=== PATIENT | female | born 1990 | race Caucasian/White ===

== ENCOUNTER 2023-11-10 10:52 | Observation (INO) | payer SELFPAY ==
[2023-11-10] VITALS (17 sets, daily range): BP systolic 71–154; BP diastolic 44–87; PULSE 75–122; RESP 16–24; TEMP 36.5–36.8; O2SAT 96–100; BMI 42.9; BMI 43.8
--- NOTE | 2023-11-10 10:53 | ECG_ITS ---
APPROVED REPORT Exam: Resting ECG HR:126 bpm ECG Measurements Heart Rate 126 AXES MN 130 P 66 QRSd 85 QRS 79 QT 395 T 55 QTc 470 Conclusion SINUS TACHYCARDIA LOW QRS VOLTAGE IN PRECORDIAL LEADS [QRS DEFLECTION < 1.0 mV IN CHEST LEADS] NONSPECIFIC T-WAVE ABNORMALITY ABNORMAL RHYTHM ECG UNCONFIRMED REPORT Electronically signed by : Janusz Stevenson MD 11/10/2023 20:05:59
--- NOTE | 2023-11-10 11:01 | PC.NURSE ---
DR KUMAR AT BEDSIDE
--- NOTE | 2023-11-10 11:02 | XR_ITS ---
FINAL REPORT CLINICAL HISTORY: cp soa tachycardia FINDINGS: SINGLE-VIEW CHEST The heart size is normal. The mediastinum is normal. The lungs are clear. There is no pneumothorax. IMPRESSION: No acute cardiopulmonary process. Reviewed, Interpreted and Dictated by Fred Boyd MD Transcribed by Estella Baez Authenticated and [facility]
[2023-11-10] MEDS: ASPIRIN 81MG CHEWABLE TABLET 324 MG PO (11:07)
[2023-11-10] MEDS: 0.9 % SODIUM CHLORIDE 1000ML 1,000 ML 999 ML IV (11:08)
--- NOTE | 2023-11-10 11:11 | PC.NURSE ---
XR AT BEDSIDE
[2023-11-10] MEDS: BELLADONNA ALKALOIDS 60 ML ML PO (11:14)
[2023-11-10 11:23] LABS: Basophils % 0.2 % (0.1-2.0); Chloride 106 mmol/L (98-107); Eosinophils # 0.3 K/mm3 (0.0-0.4); Eosinophils % 1.7 % (0.1-12.0); Hematocrit 44.5 % (37.0-47.0); Hemoglobin 14.4 g/dL (12.2-16.2); Lymphocytes # 0.8 K/mm3 (0.7-4.5); Lymphocytes % 5.3 % (10-50); Mean Corpuscular HGB Conc 32.3 g/dL (31.8-35.4); Mean Corpuscular Hemoglobin 23.3 pg (27.0-31.2); Mean Corpuscular Volume 72.1 fl (81-99); Mean Platelet Volume 8.9 fl (7.4-10.4); Monocytes # 0.6 K/mm3 (0.1-1.0); Monocytes % 4.1 % (1.7-9.3); Neutrophils # 13.1 K/mm3 (1.8-7.8); Neutrophils % 88.7 % (37.0-80.0); Platelet Count 407 K/mm3 (142-424); Red Blood Count 6.18 M/mm3 (4.20-5.40); Sodium 138 mmol/L (136-145); White Blood Count 14.8 K/mm3 (4.8-10.8)
--- NOTE | 2023-11-10 11:23 | PC.NURSE ---
PT REPORTS EXTREME IMPROVEMENT IN PAIN AFTER GI COCKTAIL
--- NOTE | 2023-11-10 11:24 | [facility].EDCP ---
Discharge Plan Disposition Patient Disposition: Admitted Referrals Follow up/Referrals: Provider,MD Baron [Primary Care Provider] - See instructions Clinical Impressions Clinical Impression: Nausea vomiting and diarrhea, Chest pain, Dehydration, Tachycardia Discharge ED Provider: Gary Jordan [facility] <Gary Jordan MD - Last Filed: 11/10/23 15:17> General Chief Complaint: Chest Pain Stated Complaint: CHEST PAIN Time Seen by Provider: 11/10/23 10:55 Mode of Arrival: Ambulatory Source of Information: Patient Limitations: No Limitations Description of Symptoms (Recalled from ER Triage Doc. by RN): ABD PAIN WHICH TURNED TO CHEST PAIN. History of Present Illness HPI narrative: This is a 33-year-old female with history of prediabetes and hypertension presenting with chest pain. Patient states that chest pain started acutely while she was at work just prior to this visit. 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 Has never had abdominal pain or chest pain like this. She states she had abdominal pain is epigastric and radiated toward her back. Shortly thereafter, it radiated up into her chest. She is now having chest pain that is all over, is deep in her chest and does not radiate. No nausea or vomiting, shortness of breath, diaphoresis, syncope, neurologic deficits, bowel or bladder dysfunction, or any other concerns. Denies any DVT or PE risk factors. Use vaporizer daily. Related Data Allergies Allergy/AdvReac Type Severity Reaction Status Date / Time banana Allergy Verified 11/10/23 11:05 [facility] <Gary Jordan MD - Last Filed: 11/10/23 15:17> [facility] Disclaimer: The information contained in this section may have been updated after the patient was seen, as this information can be updated by other users. Social History (Updated 11/10/23 @ 15:17 by Gary Jordan MD) Smoking Status: Current every day smoker alcohol intake: never current occupational status: employed Travel in the last 8 weeks: None <Gary Jordan MD - Last Filed: 11/10/23 15:17> ROS Obtained: Yes All systems reviewed & no additional complaints except as documented Physical Exam <Gary Jordan MD - Last Filed: 11/10/23 15:17> General General appearance: alert and other (Anxious) Eye Eye exam: Present normal appearance, PERRL and EOMI Neck Neck exam: Present trachea midline Chest Chest inspection: Present normal inspection and symmetric chest wall rise Respiratory Respiratory exam: Present normal lung sounds bilaterally and wheezes (Left upper lobe isolated); Absent respiratory distress, stridor, accessory muscle use or prolonged expiratory phase Cardiovascular Cardiovascular exam: Present normal rhythm and tachycardia Abdominal Exam Abdominal exam: Present soft; Absent distention, tenderness or guarding Extremities Exam Extremities exam: Absent edema Neurological Exam Neurological exam: Present alert, oriented X3 and CN II-XII intact Skin Skin exam: Present warm and dry; Absent cyanosis, diaphoresis or pallor HEART Score <aGry Jordan MD - Last Filed: 11/10/23 15:17> HEART Score HEART Score assessment performed?: Yes History (anamnesis): Moderately suspicious ECG: Non-specific disturbance Age: <45 years Risk factors: 1-2 risk factors Troponin: </= normal limit HEART Score: 3 <Karolina Curtis MD - Last Filed: 11/10/23 16:09> HEART Score HEART Score: 3 Procedures <aGry Jordan MD - Last Filed: 11/10/23 15:17> Limited Ultrasound Indication:: Limited cardiac ultrasound Indication: Chest pain Identified cardiac views: -Cardiac parasternal long axis -Cardiac parasternal short axis -Cardiac apical four-chamber Findings: -Cardiac activity present -Gross wall motion normal -Pericardial effusion absent -Right heart strain absent Impression: -Normal cardiac ultrasound Images were saved to permanent archive The study was technically adequate CPT: 91181 This study was performed by me, and I personally interpreted all images/videos. Based on my clinical judgement, these images were adequate and did necessitate further imaging. Critical Care <Gary Jordan MD - Last Filed: 11/10/23 15:17> Critical Care Time Critical Care Time: No <Karolina Curtis MD - Last Filed: 11/10/23 16:09> Critical Care Time Critical Care Time: Yes Attestation: On 11/10/23, the high probability of a clinically significant, sudden or life threatening deterioration of the following system(s) required my full and direct attention, intervention and personal management. The time I documented below is in addition to time spent performing reported procedures but includes the following listed in this critical care notation. Total Time Total Critical Care Time: 35 Medical Decision Making <Gary Jordan MD - Last Filed: 11/10/23 15:17> Medical Records Medical records reviewed: Yes I reviewed the patient's medical records. Marco Inquiry Pt receiving controlled substance: No Marco was queried for this patient: No Vital Signs Vital Signs: 11/10/23 10:53 11/10/23 10:55 11/10/23 11:01 Temperature 97.7 F Temperature Source Oral Pulse Rate 120 H 119 H Pulse Rate [Right Radial] 120 H Respiratory Rate 22 24 Blood Pressure 154/66 H Blood Pressure [Right Arm] 127/87 Blood Pressure Mean 95 Blood Pressure Mean [Right Arm] 100 02 Sat by Pulse Oximetry 100 100 Oxygen Delivery Method Room Air 11/10/23 12:05 11/10/23 12:16 11/10/23 12:30 Temperature Temperature Source Pulse Rate 122 H 99 H 99 H Pulse Rate [Right Radial] Respiratory Rate 18 20 18 Blood Pressure 71/54 L 113/70 133/67 Blood Pressure [Right Arm] Blood Pressure Mean 59 84 89 Blood Pressure Mean [Right Arm] 02 Sat by Pulse Oximetry 99 100 100 Oxygen Delivery Method 11/10/23 13:00 11/10/23 13:31 11/10/23 14:00 Temperature Temperature Source Pulse Rate 102 H 100 H 118 H Pulse Rate [Right Radial] Respiratory Rate 16 24 18 Blood Pressure 147/77 H 114/72 124/71 Blood Pressure [Right Arm] Blood Pressure Mean 85 82 88 Blood Pressure Mean [Right Arm] 02 Sat by Pulse Oximetry 99 99 100 Oxygen Delivery Method 11/10/23 14:30 11/10/23 15:00 11/10/23 15:31 Temperature Temperature Source Pulse Rate 98 H 102 H 105 H Pulse Rate [Right Radial] Respiratory Rate 20 20 18 Blood Pressure 116/71 120/74 106/64 L Blood Pressure [Right Arm] Blood Pressure Mean 88 87 78 Blood Pressure Mean [Right Arm] 02 Sat by Pulse Oximetry 100 100 97 Oxygen Delivery Method Lab Data Labs: Lab Results 11/10/23 10:57: WBC 14.8 H, RBC 6.18 H, Hgb 14.4, Hct 44.5, MCV 72.1 L, MCH 23.3 L, MCHC 32.3, RDW 17.0, Plt Count 407, MPV 8.9, Neut % (Auto) 88.7 H, Lymph % (Auto) 5.3 L, [place] % (Auto) 4.1, Eos % (Auto) 1.7, Baso % (Auto) 0.2, Neut # (Auto) 13.1 H, Lymph # (Auto) 0.8, [place] # (Auto) 0.6, Eos # (Auto) 0.3, Baso # (Auto) 0.0, Total Counted 100, Neutrophils % (Manual) 90 H, Lymphocytes % (Manual) 7 L, Monocytes % (Manual) 3, Platelet Estimate Normal, Hypochromasia 1+, D-Dimer 0.83 H, Sodium 138, Potassium 5.0, Chloride 106, Carbon Dioxide 23, Anion Gap 14.0, BUN 14, Creatinine 0.90, Estimated Creat Clear 78, Estimated GFR 73, Est GFR ( Amer) 88, Glucose 101 H, Hemoglobin A1c 5.2, Lactate 2.6 H, Calcium 9.6, Total Bilirubin 0.9, AST 49 H, ALT 47, Alkaline Phosphatase 138 H, Troponin I < 0.01, NT-Pro-B Natriuret Pep < 20.0, Total Protein 9.3 H, Albumin 4.9, Globulin 4.4 H, Albumin/Globulin Ratio 1.1, Triglycerides 133, Cholesterol 212 H, LDL Cholesterol Direct 98.13 L, VLDL Cholesterol 27, HDL Cholesterol 49, Cholesterol/HDL Ratio 4.3 H, Lipase 43, TSH 1.22, Thyroxine (T4) 9.5, HCG, Quant < 2 11/10/23 14:17: Troponin I < 0.01 11/10/23 15:12: SARS-CoV-2 (PCR) Not detected, Influenza A Untype (PCR) Not detected, Influenza Type B (PCR) Not detected 11/10/23 15:20: Lactate 2.3 H 11/10/23 10:57 11/10/23 10:57 Response Orders (Tests/Meds): ED MEDICATIONS Generic Name Dose Route Start Last Admin Trade Name Freq PRN Reason Stop Dose Admin Acetaminophen 650 mg 11/10/23 16:05 Acetaminophen 325mg Tab PO 12/10/23 16:04 Q4HP PRN Fever or Mild Pain (1-3) Enoxaparin Sodium 40 mg 11/11/23 09:00 Enoxaparin 40mg/0.4ml Syringe SQ 12/11/23 08:59 DAILY CLEM Lactated Ringer's 1,000 mls @ 999 mls/hr 11/10/23 15:08 11/10/23 15:19 Lactated Ringer's 1000 Ml Bag IV 11/10/23 16:08 999 mls/hr .Q1H1M ONE Administration Sodium Chloride 10 ml 11/10/23 11:57 11/10/23 12:58 Sodium Chloride 0.9% 10ml Syr (Rad Only) IV 12/10/23 11:56 10 ml NEEDED PRN Administration Maintain IV Site Discontinued Medications Generic Name Dose Route Start Last Admin Trade Name Freq PRN Reason Stop Dose Admin Aspirin 324 mg 11/10/23 11:01 11/10/23 11:07 Aspirin 81mg Chewable Tablet PO 11/10/23 11:02 324 mg ONCE ONE Administration Belladonna Alkaloids 60 ml 11/10/23 11:12 11/10/23 11:14 Belladonna Alkaloids 60 Ml Ml PO 11/10/23 11:13 60 ml ONCE ONE Administration Sodium Chloride 1,000 mls @ 999 mls/hr 11/10/23 11:01 11/10/23 11:08 Sod Chlor 0.9% 1000ml Bag IV 11/10/23 12:01 999 mls/hr .Q1H1M ONE Administration Iopamidol 95 ml 11/10/23 11:57 11/10/23 12:01 Iopamidol-370 (76%);100ml Bottle IV 11/10/23 11:58 Not Given ONCE ONE Iopamidol 100 ml 11/10/23 12:57 11/10/23 12:58 Iopamidol-370 (76%);100ml Bottle IV 11/10/23 12:58 100 ml ONCE ONE Administration Ketorolac Tromethamine 15 mg 11/10/23 14:37 11/10/23 14:41 Ketorolac 30mg/Ml Vial IV 11/10/23 14:38 15 mg ONCE ONE Administration Sodium Chloride 40 ml 11/10/23 11:57 11/10/23 12:01 0.9 % Sodium Chloride 50 Ml Vial IV 11/10/23 11:58 Not Given ONCE ONE Sodium Chloride 50 ml 11/10/23 12:57 11/10/23 12:58 0.9 % Sodium Chloride 50 Ml Vial IV 11/10/23 12:58 50 ml ONCE ONE Administration Sodium Chloride 10 ml 11/10/23 12:57 11/10/23 12:58 Sodium Chloride 0.9% 10ml Syr (Rad Only) IV 11/10/23 12:58 10 ml ONCE ONE Administration ORDERS Category Date Time Status CT angio abdomen pelvis Stat Cat Scan 11/10/23 11:[address] angio chest PE protocol Stat Cat Scan 11/10/23 11:49 Completed POCUS Point of Care (ER Only) Stat Exams 11/10/23 11:01 Taken XR chest portable Stat Exams 11/10/23 11:02 Taken Brain Natriuretic Peptide Stat Lab 11/10/23 10:57 Completed Complete Blood Count Auto Diff AMLAB Lab 11/11/23 06:00 Ordered Complete Blood Count Auto Diff Stat Lab 11/10/23 10:57 Completed Comprehensive Metabolic Panel AMLAB Lab 11/11/23 06:00 Ordered Comprehensive Metabolic Panel Stat Lab 11/10/23 10:57 Completed D-Dimer Stat Lab 11/10/23 10:57 Completed HCG,Quantitative Stat Lab 11/10/23 10:57 Completed Hemoglobin A1C Stat Lab 11/10/23 10:57 Completed Lactic Acid Follow Up (RFLX 1) Stat Lab 11/10/23 15:20 Completed Lactic Acid Stat Lab 11/10/23 10:57 Completed Lipase Stat Lab 11/10/23 10:57 Completed Lipid Panel Stat Lab 11/10/23 10:57 Completed Magnesium AMLAB Lab 11/11/23 06:00 Ordered Rapid PCR Covid and Flu A/B Stat Lab 11/10/23 15:12 Completed T4 (Thyroxine) Stat Lab 11/10/23 10:57 Completed TSH [Thyroid Stimulating Hormone] Stat Lab 11/10/23 10:57 Completed Troponin I Q3H Lab 11/10/23 14:17 Completed Troponin I Q3H Lab 11/10/23 17:15 Ordered Troponin I Stat Lab 11/10/23 10:57 Completed Blood Culture Stat Micro 11/10/23 15:20 Ordered ECG initial Besson Routine Y 11/10/23 10:53 Completed ECG repeat same Besson Routine Y 11/10/23 11:41 Completed MDM Narrative Medical Decision Narrative: This is a 33-year-old female with history of prediabetes and hypertension presenting with chest pain. Patient states that chest pain started acutely while she was at work just prior to this visit. 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 Has never had abdominal pain or chest pain like this. She states she had abdominal pain is epigastric and radiated toward her back. Shortly thereafter, it radiated up into her chest. She is now having chest pain that is all over, is deep in her chest and does not radiate. No nausea or vomiting, shortness of breath, diaphoresis, syncope, neurologic deficits, bowel or bladder dysfunction, or any other concerns. Denies any DVT or PE risk factors. Use vaporizer daily. History was obtained via conversation with patient. On arrival, patient hemodynamically stable, alert, oriented x4, appropriate, GCS 15, moving all extremities spontaneously, pupils equal and reactive to light. Full physical exam performed and significant for anxious appearing woman in no acute distress. She is tachycardic 120 to 130 bpm. Saturating appropriately on room air, breathing about 25-30 times a minute. Cardiac exam within normal limits other than regular tachycardia. Lungs with great air movement bilaterally, isolated wheezes left upper chest anteriorly. No lower extremity edema. Abdomen is soft, nontender, nondistended. Differential includes pneumothorax, PE, dissection, anxiety, pneumonia, metabolic, endocrinologic, esophageal spasm, among others. Patient was given GI cocktail, aspirin for symptomatic management and correction of underlying abnormalities. Patient states that she felt immediate relief on reevaluation, but is still tachycardic. Workup independently interpreted and significant for nonactionable chemistry. Patient has mild leukocytosis. Lactate 2.6. Blood cultures drawn. Chest x-ray without concern for cardiopulmonary airspace disease. CT of the chest abdomen pelvis without acute dissection or PE. Concern for pneumonia on radiology read, but I disagree and patient is not clinically pneumonia patient. See radiology read for full review of final results. Independent interpretation of EKG shows sinus tachycardia 126 beats a minute with normal axis. SC, QRS, QT intervals within normal limits. Nonspecific and nondiagnostic T wave changes. Patient placed on continuous cardiac monitoring and continuous pulse ox with initial blood pressure 117/73, heart rate 120, saturation 97. Repeat EKG performed after GI cocktail and symptom management. Sinus tachycardia 110 bpm with incomplete right bundle branch block morphology. Nonspecific T wave inversion V2 V3 and lead III without reciprocal change. Nondiagnostic overall. PERC positive. Heart score 3. On reevaluation, patient still feeling pretty poorly. She was given Toradol. This seemed to help with pain, but patient still feels worn out. COVID and flu swab pending. Conversation was had with hospitalist as well as patient. If flu swab positive, patient to be sent home with Tamiflu, if negative, patient be admitted for further workup. Patient and hospitalist agreeable with this plan. Prior to swab, care handed off to oncoming physician. <Karolina Curtis MD - Last Filed: 11/10/23 16:09> Vital Signs Vital Signs: 11/10/23 10:53 11/10/23 10:55 11/10/23 11:01 Temperature 97.7 F Temperature Source Oral Pulse Rate 120 H 119 H Pulse Rate [Right Radial] 120 H Respiratory Rate 22 24 Blood Pressure 154/66 H Blood Pressure [Right Arm] 127/87 Blood Pressure Mean 95 Blood Pressure Mean [Right Arm] 100 02 Sat by Pulse Oximetry 100 100 Oxygen Delivery Method Room Air 11/10/23 12:05 11/10/23 12:16 11/10/23 12:30 Temperature Temperature Source Pulse Rate 122 H 99 H 99 H Pulse Rate [Right Radial] Respiratory Rate 18 20 18 Blood Pressure 71/54 L 113/70 133/67 Blood Pressure [Right Arm] Blood Pressure Mean 59 84 89 Blood Pressure Mean [Right Arm] 02 Sat by Pulse Oximetry 99 100 100 Oxygen Delivery Method 11/10/23 13:00 11/10/23 13:31 11/10/23 14:00 Temperature Temperature Source Pulse Rate 102 H 100 H 118 H Pulse Rate [Right Radial] Respiratory Rate 16 24 18 Blood Pressure 147/77 H 114/72 124/71 Blood Pressure [Right Arm] Blood Pressure Mean 85 82 88 Blood Pressure Mean [Right Arm] 02 Sat by Pulse Oximetry 99 99 100 Oxygen Delivery Method 11/10/23 14:30 11/10/23 15:00 11/10/23 15:31 Temperature Temperature Source Pulse Rate 98 H 102 H 105 H Pulse Rate [Right Radial] Respiratory Rate 20 20 18 Blood Pressure 116/71 120/74 106/64 L Blood Pressure [Right Arm] Blood Pressure Mean 88 87 78 Blood Pressure Mean [Right Arm] 02 Sat by Pulse Oximetry 100 100 97 Oxygen Delivery Method Lab Data Lab results reviewed: Yes I reviewed the patient's lab results. Labs: Lab Results 11/10/23 10:57: WBC 14.8 H, RBC 6.18 H, Hgb 14.4, Hct 44.5, MCV 72.1 L, MCH 23.3 L, MCHC 32.3, RDW 17.0, Plt Count 407, MPV 8.9, Neut % (Auto) 88.7 H, Lymph % (Auto) 5.3 L, [place] % (Auto) 4.1, Eos % (Auto) 1.7, Baso % (Auto) 0.2, Neut # (Auto) 13.1 H, Lymph # (Auto) 0.8, [place] # (Auto) 0.6, Eos # (Auto) 0.3, Baso # (Auto) 0.0, Total Counted 100, Neutrophils % (Manual) 90 H, Lymphocytes % (Manual) 7 L, Monocytes % (Manual) 3, Platelet Estimate Normal, Hypochromasia 1+, D-Dimer 0.83 H, Sodium 138, Potassium 5.0, Chloride 106, Carbon Dioxide 23, Anion Gap 14.0, BUN 14, Creatinine 0.90, Estimated Creat Clear 78, Estimated GFR 73, Est GFR ( Amer) 88, Glucose 101 H, Hemoglobin A1c 5.2, Lactate 2.6 H, Calcium 9.6, Total Bilirubin 0.9, AST 49 H, ALT 47, Alkaline Phosphatase 138 H, Troponin I < 0.01, NT-Pro-B Natriuret Pep < 20.0, Total Protein 9.3 H, Albumin 4.9, Globulin 4.4 H, Albumin/Globulin Ratio 1.1, Triglycerides 133, Cholesterol 212 H, LDL Cholesterol Direct 98.13 L, VLDL Cholesterol 27, HDL Cholesterol 49, Cholesterol/HDL Ratio 4.3 H, Lipase 43, TSH 1.22, Thyroxine (T4) 9.5, HCG, Quant < 2 11/10/23 14:17: Troponin I < 0.01 11/10/23 15:12: SARS-CoV-2 (PCR) Not detected, Influenza A Untype (PCR) Not detected, Influenza Type B (PCR) Not detected 11/10/23 15:20: Lactate 2.3 H Response Orders (Tests/Meds): ED MEDICATIONS Generic Name Dose Route Start Last Admin Trade Name Price PRN Reason Stop Dose Admin Acetaminophen 650 mg 11/10/23 16:05 Acetaminophen 325mg Tab PO 12/10/23 16:04 Q4HP PRN Fever or Mild Pain (1-3) Enoxaparin Sodium 40 mg 11/11/23 09:00 Enoxaparin 40mg/0.4ml Syringe SQ 12/11/23 08:59 DAILY CLEM Lactated Ringer's 1,000 mls @ 999 mls/hr 11/10/23 15:08 11/10/23 15:19 Lactated Ringer's 1000 Ml Bag IV 11/10/23 16:08 999 mls/hr .Q1H1M ONE Administration Sodium Chloride 10 ml 11/10/23 11:57 11/10/23 12:58 Sodium Chloride 0.9% 10ml Syr (Rad Only) IV 12/10/23 11:56 10 ml NEEDED PRN Administration Maintain IV Site Discontinued Medications Generic Name Dose Route Start Last Admin Trade Name Price PRN Reason Stop Dose Admin Aspirin 324 mg 11/10/23 11:01 11/10/23 11:07 Aspirin 81mg Chewable Tablet PO 11/10/23 11:02 324 mg ONCE ONE Administration Belladonna Alkaloids 60 ml 11/10/23 11:12 11/10/23 11:14 Belladonna Alkaloids 60 Ml Ml PO 11/10/23 11:13 60 ml ONCE ONE Administration Sodium Chloride 1,000 mls @ 999 mls/hr 11/10/23 11:01 11/10/23 11:08 Sod Chlor 0.9% 1000ml Bag IV 11/10/23 12:01 999 mls/hr .Q1H1M ONE Administration Iopamidol 95 ml 11/10/23 11:57 11/10/23 12:01 Iopamidol-370 (76%);100ml Bottle IV 11/10/23 11:58 Not Given ONCE ONE Iopamidol 100 ml 11/10/23 12:57 11/10/23 12:58 Iopamidol-370 (76%);100ml Bottle IV 11/10/23 12:58 100 ml ONCE ONE Administration Ketorolac Tromethamine 15 mg 11/10/23 14:37 11/10/23 14:41 Ketorolac 30mg/Ml Vial IV 11/10/23 14:38 15 mg ONCE ONE Administration Sodium Chloride 40 ml 11/10/23 11:57 11/10/23 12:01 0.9 % Sodium Chloride 50 Ml Vial IV 11/10/23 11:58 Not Given ONCE ONE Sodium Chloride 50 ml 11/10/23 12:57 11/10/23 12:58 0.9 % Sodium Chloride 50 Ml Vial IV 11/10/23 12:58 50 ml ONCE ONE Administration Sodium Chloride 10 ml 11/10/23 12:57 11/10/23 12:58 Sodium Chloride 0.9% 10ml Syr (Rad Only) IV 11/10/23 12:58 10 ml ONCE ONE Administration ORDERS Category Date Time Status CT angio abdomen pelvis Stat Cat Scan 11/10/23 11:[address] angio chest PE protocol Stat Cat Scan 11/10/23 11:49 Completed POCUS Point of Care (ER Only) Stat Exams 11/10/23 11:01 Taken XR chest portable Stat Exams 11/10/23 11:02 Taken Brain Natriuretic Peptide Stat Lab 11/10/23 10:57 Completed Complete Blood Count Auto Diff AMLAB Lab 11/11/23 06:00 Ordered Complete Blood Count Auto Diff Stat Lab 11/10/23 10:57 Completed Comprehensive Metabolic Panel AMLAB Lab 11/11/23 06:00 Ordered Comprehensive Metabolic Panel Stat Lab 11/10/23 10:57 Completed D-Dimer Stat Lab 11/10/23 10:57 Completed HCG,Quantitative Stat Lab 11/10/23 10:57 Completed Hemoglobin A1C Stat Lab 11/10/23 10:57 Completed Lactic Acid Follow Up (RFLX 1) Stat Lab 11/10/23 15:20 Completed Lactic Acid Stat Lab 11/10/23 10:57 Completed Lipase Stat Lab 11/10/23 10:57 Completed Lipid Panel Stat Lab 11/10/23 10:57 Completed Magnesium AMLAB Lab 11/11/23 06:00 Ordered Rapid PCR Covid and Flu A/B Stat Lab 11/10/23 15:12 Completed T4 (Thyroxine) Stat Lab 11/10/23 10:57 Completed TSH [Thyroid Stimulating Hormone] Stat Lab 11/10/23 10:57 Completed Troponin I Q3H Lab 11/10/23 14:17 Completed Troponin I Q3H Lab 11/10/23 17:15 Ordered Troponin I Stat Lab 11/10/23 10:57 Completed Blood Culture Stat Micro 11/10/23 15:20 Ordered ECG initial Besson Routine Y 11/10/23 10:53 Completed ECG repeat same Besson Routine Y 11/10/23 11:41 Completed MDM Narrative Medical Decision Narrative: This is a 33-year-old female with history of prediabetes and hypertension presenting with chest pain. Patient states that chest pain started acutely while she was at work just prior to this visit. 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 Has never had abdominal pain or chest pain like this. She states she had abdominal pain is epigastric and radiated toward her back. Shortly thereafter, it radiated up into her chest. She is now having chest pain that is all over, is deep in her chest and does not radiate. No nausea or vomiting, shortness of breath, diaphoresis, syncope, neurologic deficits, bowel or bladder dysfunction, or any other concerns. Denies any DVT or PE risk factors. Use vaporizer daily. History was obtained via conversation with patient. On arrival, patient hemodynamically stable, alert, oriented x4, appropriate, GCS 15, moving all extremities spontaneously, pupils equal and reactive to light. Full physical exam performed and significant for anxious appearing woman in no acute distress. She is tachycardic 120 to 130 bpm. Saturating appropriately on room air, breathing about 25-30 times a minute. Cardiac exam within normal limits other than regular tachycardia. Lungs with great air movement bilaterally, isolated wheezes left upper chest anteriorly. No lower extremity edema. Abdomen is soft, nontender, nondistended. Differential includes pneumothorax, PE, dissection, anxiety, pneumonia, metabolic, endocrinologic, esophageal spasm, among others. Patient was given GI cocktail, aspirin for symptomatic management and correction of underlying abnormalities. Patient states that she felt immediate relief on reevaluation, but is still tachycardic. Workup independently interpreted and significant for nonactionable chemistry. Patient has mild leukocytosis. Lactate 2.6. Blood cultures drawn. Chest x-ray without concern for cardiopulmonary airspace disease. CT of the chest abdomen pelvis without acute dissection or PE. Concern for pneumonia on radiology read, but I disagree and patient is not clinically pneumonia patient. See radiology read for full review of final results. Independent interpretation of EKG shows sinus tachycardia 126 beats a minute with normal axis. SC, QRS, QT intervals within normal limits. Nonspecific and nondiagnostic T wave changes. Patient placed on continuous cardiac monitoring and continuous pulse ox with initial blood pressure 117/73, heart rate 120, saturation 97. Repeat EKG performed after GI cocktail and symptom management. Sinus tachycardia 110 bpm with incomplete right bundle branch block morphology. Nonspecific T wave inversion V2 V3 and lead III without reciprocal change. Nondiagnostic overall. PERC positive. Heart score 3. On reevaluation, patient still feeling pretty poorly. She was given Toradol. This seemed to help with pain, but patient still feels worn out. COVID and flu swab pending. Conversation was had with hospitalist as well as patient. If flu swab positive, patient to be sent home with Tamiflu, if negative, patient be admitted for further workup. Patient and hospitalist agreeable with this plan. Prior to swab, care handed off to oncoming physician. Assessment this is Dr. Curtis at 4 PM I took over for Dr. Jordan. I personally reviewed the images with Dr. Jordan as well as the labs that have returned and flu and COVID are negative at this point. I agree that there is no evidence of pneumonia on CT imaging of the chest also reviewed with the patient she had no respiratory symptoms preceding this will not treat her clinically for pneumonia. She did have SIRS which was nonspecific in this particular case. No definitive source of infection right now antibiotics have been withheld. She has had significant amount of fluids at this point her heart rate is down into the 80s she looks well on my exam other than still peers very fatigued. At this point emergent medical condition seem to have been ruled out labs otherwise unremarkable CT imaging did not yield any other alternative diagnosis from emergency standpoint. I gave her the option of going home but she still felt very poor Dr. Jordan had already discussed the case with Dr. Laurent who had agreed to admit the patient for further evaluation and treatment of the patient desired and the patient and patient's family still would like to stay for possible observation. I discussed with Dr. Laurent who graciously accepted the patient for further evaluation and treatment.
[2023-11-10 11:25] LABS: Alanine Aminotransferase 47 U/L (12-78); Alkaline Phosphatase 138 U/L (38-126); Aspartate Amino Transferase 49 U/L (14-36); Bilirubin,Total 0.9 mg/dl (0.2-1.3); Blood Urea Nitrogen 14 mg/dl (7-17); Carbon Dioxide 23 mmol/L (22.0-30.0); Creatinine Clearance Estimated 78 mL/min (50-200); Estimated Glomerular Filt Rate 73 ml/min (>60); GFR (African American) 88 ML/MIN (>60); Lipase 43 U/L (23-300)
[2023-11-10 11:26] LABS: Albumin Level 4.9 g/dl (3.5-5.0); Albumin/Globulin Ratio 1.1 (1.1-1.8); Calcium 9.6 mg/dl (8.4-10.2); Chol/HDL Ratio 4.3 (1-3.5); Cholesterol 212 mg/dl (140-200); Globulin 4.4 g/dL (1.3-3.2); Glucose 101 mg/dl (74-100); HDL Cholesterol 49 mg/dl (40-60); Total Protein,Serum 9.3 g/dl (6.3-8.2); Triglycerides 133 mg/dl (30-150); VLDL Cholesterol 27 mg/dL (0-40)
--- NOTE | 2023-11-10 11:26 | CT_ITS ---
FINAL REPORT TECHNIQUE: Pre-and postcontrast images of the abdomen and pelvis were performed by computed tomography. Extensive 3-D reconstruction images were performed. A CTA was performed. This study was performed with techniques to keep radiation doses as low as reasonably achievable (ALARA). Individualized dose reduction techniques using automated exposure control or adjustment of mA and/or kV according to the patient''s size were employed. CLINICAL HISTORY: cp and abd pain to back, crescendo FINDINGS: ABDOMEN/PELVIS: The lung bases are clear. Precontrast images demonstrate no evidence of nephrolithiasis. No adrenal masses are identified. There is mild diffuse fatty infiltration of the liver. The gallbladder is present. There are calcified granulomas in the spleen. The spleen and pancreas are unremarkable. Uterus is present and lies eccentric to the left. The appendix is normal. CTA: The abdominal aorta is proper caliber. The SMA, celiac axis, and MOOSE are patent. There is no significant stenosis or calcification. There are widely patent renal arteries with early bifurcation of the right renal artery. The iliac arteries are unremarkable. IMPRESSION: No evidence of renal vascular hypertension or significant renal artery stenosis. Reviewed, Interpreted and Dictated by Fred Boyd MD Transcribed by Estella Baez Authenticated and [facility]
[2023-11-10 11:27] LABS: Lactic Acid 2.6 mmol/L (0.7-2.1)
[2023-11-10 11:28] LABS: MANUAL DIFFERENTIAL MANUAL DIFFERENTIAL (MANUAL DIFF)
[2023-11-10 11:30] LABS: D-Dimer 0.83 ug/mL (0.0-0.5)
--- NOTE | 2023-11-10 11:41 | ECG_ITS ---
APPROVED REPORT Exam: Resting ECG HR:110 bpm ECG Measurements Heart Rate 110 AXES CO 148 P 56 QRSd 90 QRS 69 QT 318 T 31 QTc 383 Conclusion SINUS TACHYCARDIA LOW QRS VOLTAGE IN PRECORDIAL LEADS [QRS DEFLECTION < 1.0 mV IN CHEST LEADS] POSSIBLE RIGHT VENTRICULAR CONDUCTION DELAY [RSR (QR) IN V1/V2] NONSPECIFIC T-WAVE ABNORMALITY ABNORMAL RHYTHM ECG UNCONFIRMED REPORT Electronically signed by : Janusz Stevenson MD 11/10/2023 20:05:51
[2023-11-10 11:45] LABS: T4 (Thyroxine) 9.5 ug/dl (5.53-11.0)
--- NOTE | 2023-11-10 11:46 | PC.NURSE ---
SPOKE WITH PT REGARDING NPO STATUS UNTIL MD ALLOWS. VERBALIZED UNDERSTANDING
--- NOTE | 2023-11-10 11:49 | CT_ITS ---
FINAL REPORT TECHNIQUE: The patient was injected with IV contrast. Axial images were obtained through the chest in a PE protocol. 3-D reconstruction images were also performed. Individualized dose reduction techniques using automated exposure control or adjustment of the MA and/or KV according to patient's size were employed. CLINICAL HISTORY: concern for dissection vs pe FINDINGS: Mediastinal vasculature is adequately opacified. No pulmonary artery filling defects are identified to suggest PE. There is no aortic dissection. There is no axillary adenopathy. There is no hilar or mediastinal adenopathy. The heart size is normal. There is no pericardial or pleural effusion. There are mild airspace infiltrates in the upper lobes bilaterally, right greater than left consistent with acute pneumonia. Limited images of the upper abdomen reveal mild fatty infiltration of the liver. There are calcified granulomas in the spleen. IMPRESSION: No pulmonary embolus or dissection. Bilateral pneumonia. Reviewed, Interpreted and Dictated by Fred Boyd MD Transcribed by Estella Baez Authenticated and . [facility]
--- NOTE | 2023-11-10 11:52 | PC.NURSE ---
DR KUMAR AT BEDSIDE TO US
[2023-11-10 11:59] LABS: Thyroid Stimulating Hormone 1.22 uIU/mL (0.465-4.68)
--- NOTE | 2023-11-10 12:03 | PC.NURSE ---
ICE CHIPS PROVIDED PER PT REQUEST. CALL LIGHT WITHIN REACH. FAMILY AT BEDSIDE. NO FURTHER NEEDS AT THIS TIME
[2023-11-10 12:11] LABS: Lymphocytes % 7 % (10-50); Monocytes % 3 % (2-9); Neutrophils % 90 % (42-76); Total Cells Counted 100
[2023-11-10 12:12] LABS: Hypochromasia 1+; Platelet Estimate Normal
[2023-11-10 12:15] LABS: Direct LDL Cholesterol 98.13 mg/dL (100-129)
[2023-11-10 12:17] LABS: NT Pro Brain Natriuretic Pep. < 20.0 pg/mL (0-125); Troponin I < 0.01 ng/ml (0.00-0.034)
[2023-11-10 12:46] LABS: HCG,Quantitative < 2 mIU/ml (0-5.42); Hemoglobin A1C 5.2 % (4.0-6.0)
--- NOTE | 2023-11-10 12:51 | PC.NURSE ---
PT TO CT
[2023-11-10] MEDS: IOPAMIDOL-370 (76%);100ML BOTTLE 100 ML IV (12:58)
[2023-11-10] MEDS: SODIUM CHLORIDE 0.9% 10ML SYR (RAD ONLY) 10 ML IV ×2 (12:58)
[2023-11-10] MEDS: 0.9 % SODIUM CHLORIDE 50 ML VIAL IV (12:58)
--- NOTE | 2023-11-10 12:58 | PC.NURSE ---
PT RETURNED FROM CT
[2023-11-10] MEDS: KETOROLAC 30MG/ML VIAL 15 MG IV (14:41)
[2023-11-10 14:51] LABS: Troponin I < 0.01 ng/ml (0.00-0.034)
[2023-11-10 15:08] LABS: Reflex Lactic Add Lactic Reflex
--- NOTE | 2023-11-10 15:09 | PC.NURSE ---
DR KUMAR SPEAKING WITH DR MENDES
[2023-11-10 15:14] LABS: Coronavirus 19, PCR Not Detected (NotDetected); Influenza A, PCR Not Detected (NotDetected); Influenza B, PCR Not Detected (NotDetected)
[2023-11-10] MEDS: LACTATED RINGERS 1000ML 1,000 ML 999 ML IV (15:19)
[2023-11-10 15:38] LABS: Lactic Acid Follow Up (RFLX 1) 2.3 mmol/L (0.7-2.1)
--- NOTE | 2023-11-10 15:47 | PC.NURSE ---
PT REPORTS FEELING LIKE SHE WILL VOMIT AND PASS OUT, DR OLIVIER NOTIFIED TO EVALUATE PT
--- NOTE | 2023-11-10 15:56 | PC.NURSE ---
DR OLIVIER AT BEDSIDE TO EVALUATE PT
--- NOTE | 2023-11-10 16:04 | PC.NURSE ---
DR OLIVIER UPDATING DR MENDES FOR ADMISSION
--- NOTE | 2023-11-10 16:07 | EXP.HP ---
History of Present Illness *Admission Date: 11/10/23 *Reason for visit:: pain, weakness, nausea and vomiting *History of present illness: Ms. Jon is a 33-year-old female who presented to the ER with onset of abdominal pain that progressed to chest pain. She states the pain began this morning, she laid down and it progressed to her chest, she subsequently had an episode of nausea and vomiting. Also reports having had diarrhea yesterday and today. Denies any blood in her vomit or stool. No fever, cough, shortness of breath. Workup in the ER consisting of CBC, CMP, magnesium, CT of chest. Patient noted to have leukocytosis and tachycardia concerning for SIRS. CT of chest with no focal consolidation. Continues to have nausea even after Zofran. Administered 2 L IV fluids. Given her persistent abdominal pain and nausea, medicine was consulted for admission and further management. On arrival to the floor, patient denies any fever, syncope. No known sick contacts. [facility] Disclaimer: The information contained in this section may have been updated after the patient was seen, as this information can be updated by other users. Medical History No significant medical problems Surgical History History of back surgery Family History No significant family history Social History Smoking Status: Current every day smoker alcohol intake: never current occupational status: employed Travel in the last 8 weeks: None Review of Systems Review of Systems Review of systems (narrative): 14 point review of systems performed, pertinent positives and negatives as per HPI Meds Home Medications and Allergies Home Medications Medication Instructions Recorded Confirmed Type No Known Home Medications 11/10/23 11/10/23 History New Prescriptions to Start Prescriptions: Allergies Allergy/AdvReac Type Severity Reaction Status Date / Time banana Allergy Verified 11/10/23 11:05 Exam Data for Last 24 hours Vital signs and Labs for Last 24 Hours: Temp Pulse Resp BP Pulse Ox O2 Del Method 97.7 F 105 H 18 106/64 L 97 Room Air 11/10/23 10:53 11/10/23 15:31 11/10/23 15:31 11/10/23 15:31 11/10/23 15:31 11/10/23 10:53 Laboratory Results - last 24 hr 11/10/23 10:57: WBC 14.8 H, RBC 6.18 H, Hgb 14.4, Hct 44.5, MCV 72.1 L, MCH 23.3 L, MCHC 32.3, RDW 17.0, Plt Count 407, MPV 8.9, Neut % (Auto) 88.7 H, Lymph % (Auto) 5.3 L, [place] % (Auto) 4.1, Eos % (Auto) 1.7, Baso % (Auto) 0.2, Neut # (Auto) 13.1 H, Lymph # (Auto) 0.8, [place] # (Auto) 0.6, Eos # (Auto) 0.3, Baso # (Auto) 0.0, Total Counted 100, Neutrophils % (Manual) 90 H, Lymphocytes % (Manual) 7 L, Monocytes % (Manual) 3, Platelet Estimate Normal, Hypochromasia 1+, D-Dimer 0.83 H, Sodium 138, Potassium 5.0, Chloride 106, Carbon Dioxide 23, Anion Gap 14.0, BUN 14, Creatinine 0.90, Estimated Creat Clear 78, Estimated GFR 73, Est GFR ( Amer) 88, Glucose 101 H, Hemoglobin A1c 5.2, Lactate 2.6 H, Calcium 9.6, Total Bilirubin 0.9, AST 49 H, ALT 47, Alkaline Phosphatase 138 H, Troponin I < 0.01, NT-Pro-B Natriuret Pep < 20.0, Total Protein 9.3 H, Albumin 4.9, Globulin 4.4 H, Albumin/Globulin Ratio 1.1, Triglycerides 133, Cholesterol 212 H, LDL Cholesterol Direct 98.13 L, VLDL Cholesterol 27, HDL Cholesterol 49, Cholesterol/HDL Ratio 4.3 H, Lipase 43, TSH 1.22, Thyroxine (T4) 9.5, HCG, Quant < 2 11/10/23 14:17: Troponin I < 0.01 11/10/23 15:12: SARS-CoV-2 (PCR) Not detected, Influenza A Untype (PCR) Not detected, Influenza Type B (PCR) Not detected 11/10/23 15:20: Lactate 2.3 H I & O for Last 24 hours: Intake & Output 02/17/24 02/18/24 02/19/24 02/20/24 23:59 23:59 23:59 23:59 Weight 113.398 kg Constitutional Constitutional: no acute distress and morbidly obese Comments: Ill-appearing *Routine HEENT Exam Head: Present normocephalic Eye: Present EOMI and PERRL ENT: Present mucous membranes moist *Routine Neck Exam Neck: Present supple; Absent lymphadenopathy Routine Chest/Breast/Axilla Exam Chest wall: Absent tenderness *Routine Respiratory Exam Respiratory: Present CTA bilaterally; Absent rhonchi, wheezes or crackles *Routine Cardiovascular Exam Cardiovascular: Present RRR *Routine Abdominal Exam Abdominal: Present soft, normoactive bowel sounds and tenderness (Moderate epigastric) *Routine Rectal Exam Rectal:: deferred *Routine Genitalia Exam Genitalia:: deferred *Routine Extremities Exam Extremities: Absent cyanosis, clubbing or edema Routine Back/Spine/Pelvis Exam Comments: Well-healed scar midline lumbar spine *Routine Skin Exam Skin: Present warm; Absent rash *Routine Neurological Exam Neurological: Present alert, oriented X3 and moving all extremities; Absent altered mental status Assessment and Plan *Assessment and plan (1) SIRS (systemic inflammatory response syndrome): Status: Acute Category: Medical Code(s): R65.10 - Systemic inflammatory response syndrome (SIRS) of non-infectious origin without acute organ dysfunction (2) Nausea vomiting and diarrhea: Status: Acute Category: Medical Code(s): R11.2 - Nausea with vomiting, unspecified; R19.7 - Diarrhea, unspecified (3) Gastroenteritis: Status: Acute Category: Medical Code(s): K52.9 - Noninfective gastroenteritis and colitis, unspecified (4) Dehydration: Status: Acute Category: Medical Code(s): E86.0 - Dehydration (5) Tachycardia: Status: Acute Category: Medical Code(s): R00.0 - Tachycardia, unspecified Plan 33-year-old female who presented to the ER with abdominal pain and chest pain. Had episode of nausea and vomiting prior to presentation. Workup in the ER concerning for SIRS with tachycardia, leukocytosis. No clear source of infection. Discussed case with ER physician, request admission for IV fluids, p.o. challenge, repeat labs in the morning. Holding on antibiotics at this time. Medicine agreed to admit for further management. Problems addressed as follows: SIRS due to gastroenteritis with nausea vomiting and diarrhea. -Workup in the ER negative for COVID and flu. Leukocytosis of 14,000. Kidney function normal with stable electrolytes. -Continue Zofran 4 mg every 6 hours as needed for nausea and vomiting. -Holding on antibiotics, chest imaging personally reviewed, patient has no respiratory symptoms, no indication for antibiotics. Does not appear to have pneumonia on personal review of CT of chest. -Regular diet till outpatient options. -Status post 2 L IV fluids in the ER. No indication for further IV fluids at this time -Repeat CBC, CMP, magnesium ordered for the morning. If labs show improvement, likely discharge tomorrow. Leukocytosis likely from D marginalization from nausea and vomiting. -Received some improvement with GI cocktail in the ER. Continue with Tums as needed every 6 hours for heartburn Full code Regular diet PLOV BID
--- NOTE | 2023-11-10 16:07 | PC.NURSE ---
OFFICE BOOKKEEPER NOTIFIED OF ADMISSION
[2023-11-10] MEDS: ONDANSETRON 4MG/2ML VIAL 4 MG IV (16:41)
[2023-11-10] MEDS: ACETAMINOPHEN 1,000MG/100ML VIAL 1000 MG IV (16:41)
--- NOTE | 2023-11-10 16:43 | PC.NURSE ---
REPORT CALLED TO [facility] 2ND FLOOR
[2023-11-10 17:28] LABS: Reflex Lactic (2 hrs) Add Lactic Reflex
--- NOTE | 2023-11-10 17:34 | PC.NURSE ---
PT GOING UP FOR ADMISSION
--- NOTE | 2023-11-10 18:52 | PC.NURSE ---
patient new admit this shift. Patient c/o nausea and diarrhea with a one time emesis event.
[2023-11-10] MEDS: ACETAMINOPHEN 325MG TAB 650 MG PO (23:21)
[2023-11-11] VITALS: BP 114/54; PULSE 84; PULSE 85; RESP 20; TEMP 36.5; O2SAT 98
[2023-11-11] MEDS: ONDANSETRON 4MG/2ML VIAL 4 MG IV (00:04)
[2023-11-11 04:00] VITALS: BP 95/48; PULSE 64; PULSE 75; RESP 18; TEMP 36.8; O2SAT 97; BMI 43.8
--- NOTE | 2023-11-11 05:43 | PC.NURSE ---
Patient has had a good night. She has rested well. did have once accident and got cleaned up and took a shower. Was independent with all of that. Patient is normal sinus on the monitor but when getting up does get tachy in the 120s. Patient heart rate comes right back down after resting. Patient did complain of nausea once and abdominal cramping see MAR. Has not complained sense. No other issue through the night.
[2023-11-11 06:34] LABS: Basophils % 0.1 % (0.1-2.0); Eosinophils # 0.1 K/mm3 (0.0-0.4); Eosinophils % 0.9 % (0.1-12.0); Hematocrit 31.9 % (37.0-47.0); Lymphocytes # 0.8 K/mm3 (0.7-4.5); Lymphocytes % 15.4 % (10-50); Mean Corpuscular HGB Conc 33.4 g/dL (31.8-35.4); Mean Corpuscular Hemoglobin 23.6 pg (27.0-31.2); Mean Corpuscular Volume 70.7 fl (81-99); Mean Platelet Volume 8.6 fl (7.4-10.4); Monocytes # 0.3 K/mm3 (0.1-1.0); Monocytes % 5.1 % (1.7-9.3); Neutrophils # 4.3 K/mm3 (1.8-7.8); Neutrophils % 78.5 % (37.0-80.0); Platelet Count 279 K/mm3 (142-424); Red Cell Distribution Width 17.1 % (11.5-17.5); White Blood Count 5.4 K/mm3 (4.8-10.8)
[2023-11-11 06:42] LABS: Chloride 108 mmol/L (98-107)
[2023-11-11 06:43] LABS: Potassium 3.3 mmoL/L (3.5-5.1); Sodium 135 mmol/L (136-145)
[2023-11-11 06:45] LABS: Alanine Aminotransferase 29 U/L (12-78); Aspartate Amino Transferase 24 U/L (14-36); Blood Urea Nitrogen 15 mg/dl (7-17); Creatinine Clearance Estimated 88 mL/min (50-200); Estimated Glomerular Filt Rate 84 ml/min (>60); GFR (African American) 101 ML/MIN (>60)
[2023-11-11 06:46] LABS: Albumin Level 3.3 g/dl (3.5-5.0); Albumin/Globulin Ratio 1.2 (1.1-1.8); Alkaline Phosphatase 92 U/L (38-126); Anion Gap 4.3 mEq/L (5-15); Bilirubin,Total 0.3 mg/dl (0.2-1.3); Carbon Dioxide 26 mmol/L (22.0-30.0); Globulin 2.8 g/dL (1.3-3.2); Glucose 98 mg/dl (74-100); Magnesium 1.7 mg/dl (1.6-2.3); Total Protein,Serum 6.1 g/dl (6.3-8.2)
--- NOTE | 2023-11-11 07:24 | P.DS_ITS ---
General Admission date:: 11/10/23 Discharge date: 11/11/23 HPI HPI HPI: Ms. Jon is a 33-year-old female who presented to the ER with onset of abdominal pain that progressed to chest pain. She states the pain began this morning, she laid down and it progressed to her chest, she subsequently had an episode of nausea and vomiting. Also reports having had diarrhea yesterday and today. Denies any blood in her vomit or stool. No fever, cough, shortness of breath. Workup in the ER consisting of CBC, CMP, magnesium, CT of chest. Patient noted to have leukocytosis and tachycardia concerning for SIRS. CT of chest with no focal consolidation. Continues to have nausea even after Zofran. Administered 2 L IV fluids. Given her persistent abdominal pain and nausea, medicine was consulted for admission and further management. On arrival to the floor, patient denies any fever, syncope. No known sick contacts. Hospital Course Hospital Course Hospital Course: 33-year-old female who presented to the ER with abdominal pain and chest pain. Had episode of nausea and vomiting prior to presentation. Workup in the ER concerning for SIRS with tachycardia, leukocytosis. No clear source of infection. Discussed case with ER physician, request admission for IV fluids, p.o. challenge, repeat labs in the morning. Patient clinically improved. Tolerating p.o. liquids. No further episodes of emesis. Has had another episode of diarrhea. Given her clinical stability, normalization of white count, symptoms likely from gastroenteritis, discharged home for continued management. Problems addressed as follows: SIRS due to gastroenteritis with nausea vomiting and diarrhea. -Workup in the ER negative for COVID and flu. Leukocytosis of 14,000. Kidney function normal with stable electrolytes. Tolerated IV fluids with good hydration at time of admission. Able to tolerate clear liquid diet with no fu rther emesis. Remained hemodynamically stable. Repeat labs in the morning stable. Normalization of white count. No indication for antibiotics. Will continue Zofran at discharge. Counseled on typical time course for gastroenteritis to resolve. Plan for follow-up with PCP in the next 1 to 2 weeks. Spent 30 minutes in discharge counseling, documentation, chart review, and direct care with patient. Exam Data for Last 24 hours Vital signs and Labs for Last 24 Hours: Temp Pulse Resp BP Pulse Ox O2 Del Method 98.3 F 75 18 95/48 L 97 Room Air 11/11/23 04:00 11/11/23 04:00 11/11/23 04:00 11/11/23 04:00 11/11/23 04:00 11/11/23 06:55 Laboratory Results - last 24 hr 11/10/23 10:57: WBC 14.8 H, RBC 6.18 H, Hgb 14.4, Hct 44.5, MCV 72.1 L, MCH 23.3 L, MCHC 32.3, RDW 17.0, Plt Count 407, MPV 8.9, Neut % (Auto) 88.7 H, Lymph % (Auto) 5.3 L, [place] % (Auto) 4.1, Eos % (Auto) 1.7, Baso % (Auto) 0.2, Neut # (Auto) 13.1 H, Lymph # (Auto) 0.8, [place] # (Auto) 0.6, Eos # (Auto) 0.3, Baso # (Auto) 0.0, Total Counted 100, Neutrophils % (Manual) 90 H, Lymphocytes % (Manual) 7 L, Monocytes % (Manual) 3, Platelet Estimate Normal, Hypochromasia 1+, D-Dimer 0.83 H, Sodium 138, Potassium 5.0, Chloride 106, Carbon Dioxide 23, Anion Gap 14.0, BUN 14, Creatinine 0.90, Estimated Creat Clear 78, Estimated GFR 73, Est GFR ( Amer) 88, Glucose 101 H, Hemoglobin A1c 5.2, Lactate 2.6 H, Calcium 9.6, Total Bilirubin 0.9, AST 49 H, ALT 47, Alkaline Phosphatase 138 H, Troponin I < 0.01, NT-Pro-B Natriuret Pep < 20.0, Total Protein 9.3 H, Albumin 4.9, Globulin 4.4 H, Albumin/Globulin Ratio 1.1, Triglycerides 133, Cholesterol 212 H, LDL Cholesterol Direct 98.13 L, VLDL Cholesterol 27, HDL Cholesterol 49, Cholesterol/HDL Ratio 4.3 H, Lipase 43, TSH 1.22, Thyroxine (T4) 9.5, HCG, Quant < 2 11/10/23 14:17: Troponin I < 0.01 11/10/23 15:12: SARS-CoV-2 (PCR) Not detected, Influenza A Untype (PCR) Not detected, Influenza Type B (PCR) Not detected 11/10/23 15:20: Lactate 2.3 H 11/10/23 17:44: Lactate 2.0 11/11/23 06:02: WBC 5.4 D, RBC 4.50 D, Hct 31.9 L, MCV 70.7 L, MCH 23.6 L, MCHC 33.4, RDW 17.1, Plt Count 279 D, MPV 8.6, Neut % (Auto) 78.5, Lymph % (Auto) 15.4, [place] % (Auto) 5.1, Eos % (Auto) 0.9, Baso % (Auto) 0.1, Neut # (Auto) 4.3, Lymph # (Auto) 0.8, [place] # (Auto) 0.3, Eos # (Auto) 0.1, Baso # (Auto) 0.0, Sodium 135 L, Potassium 3.3 L D, Chloride 108 H, Carbon Dioxide 26, Anion Gap 4.3 L, BUN 15, Creatinine 0.80, Estimated Creat Clear 88, Estimated GFR 84, Est GFR ( Amer) 101, Glucose 98, Calcium 8.0 L, Magnesium 1.7, Total Bilirubin 0.3, AST 24 D, ALT 29 D, Alkaline Phosphatase 92, Total Protein 6.1 L D, Albumin 3.3 L D, Globulin 2.8, Albumin/Globulin Ratio 1.2 I & O for Last 24 hours: Intake & Output 11/08/23 11/09/23 11/10/23 11/11/23 23:59 23:59 23:59 23:59 Weight 115.865 kg 116.528 kg Constitutional Constitutional: no acute distress and morbidly obese *Routine HEENT Exam Head: Present normocephalic Eye: Present EOMI and PERRL ENT: Present mucous membranes moist *Routine Neck Exam Neck: Present supple; Absent lymphadenopathy *Routine Respiratory Exam Respiratory: Present CTA bilaterally *Routine Cardiovascular Exam Cardiovascular: Present RRR *Routine Abdominal Exam Abdominal: Present soft, normoactive bowel sounds and tenderness (mild epigastric) *Routine Rectal Exam Patient deferred: visual exam *Routine Exam Patient deferred: external exam *Routine Extremities Exam Extremities: Absent cyanosis, clubbing or edema *Routine Skin Exam Skin: Present warm; Absent rash *Routine Neurological Exam Neurological: Present alert, oriented X3 and moving all extremities; Absent altered mental status Results Data Completed and Pending Labs on day of discharge: Labs from last 24 hours 11/11/23 11/10/23 11/10/23 06:02 17:44 15:20 WBC 5.4 D RBC 4.50 D Hgb Hct 31.9 L MCV 70.7 L MCH 23.6 L MCHC 33.4 RDW 17.1 Plt Count 279 D MPV 8.6 Neut % (Auto) 78.5 Lymph % (Auto) 15.4 [place] % (Auto) 5.1 Eos % (Auto) 0.9 Baso % (Auto) 0.1 Neut # (Auto) 4.3 Lymph # (Auto) 0.8 [place] # (Auto) 0.3 Eos # (Auto) 0.1 Baso # (Auto) 0.0 Total Counted Neutrophils % (Manual) Lymphocytes % (Manual) Monocytes % (Manual) Platelet Estimate Hypochromasia D-Dimer Sodium 135 L Potassium 3.3 L D Chloride 108 H Carbon Dioxide 26 Anion Gap 4.3 L BUN 15 Creatinine 0.80 Estimated Creat Clear 88 Estimated GFR 84 Est GFR ( Amer) 101 Glucose 98 Hemoglobin A1c Lactate 2.0 2.3 H Calcium 8.0 L Magnesium 1.7 Total Bilirubin 0.3 AST 24 D ALT 29 D Alkaline Phosphatase 92 Troponin I NT-Pro-B Natriuret Pep Total Protein 6.1 L D Albumin 3.3 L D Globulin 2.8 Albumin/Globulin Ratio 1.2 Triglycerides Cholesterol LDL Cholesterol Direct VLDL Cholesterol HDL Cholesterol Cholesterol/HDL Ratio Lipase TSH Thyroxine (T4) HCG, Quant SARS-CoV-2 (PCR) Influenza A Untype (PCR) Influenza Type B (PCR) 11/10/23 11/10/23 11/10/23 15:12 14:17 10:57 WBC 14.8 H RBC 6.18 H Hgb 14.4 Hct 44.5 MCV 72.1 L MCH 23.3 L MCHC 32.3 RDW 17.0 Plt Count 407 MPV 8.9 Neut % (Auto) 88.7 H Lymph % (Auto) 5.3 L [place] % (Auto) 4.1 Eos % (Auto) 1.7 Baso % (Auto) 0.2 Neut # (Auto) 13.1 H Lymph # (Auto) 0.8 [place] # (Auto) 0.6 Eos # (Auto) 0.3 Baso # (Auto) 0.0 Total Counted 100 Neutrophils % (Manual) 90 H Lymphocytes % (Manual) 7 L Monocytes % (Manual) 3 Platelet Estimate Normal Hypochromasia 1+ D-Dimer 0.83 H Sodium 138 Potassium 5.0 Chloride 106 Carbon Dioxide 23 Anion Gap 14.0 BUN 14 Creatinine 0.90 Estimated Creat Clear 78 Estimated GFR 73 Est GFR ( Amer) 88 Glucose 101 H Hemoglobin A1c 5.2 Lactate 2.6 H Calcium 9.6 Magnesium Total Bilirubin 0.9 AST 49 H ALT 47 Alkaline Phosphatase 138 H Troponin I < 0.01 < 0.01 NT-Pro-B Natriuret Pep < 20.0 Total Protein 9.3 H Albumin 4.9 Globulin 4.4 H Albumin/Globulin Ratio 1.1 Triglycerides 133 Cholesterol 212 H LDL Cholesterol Direct 98.13 L VLDL Cholesterol 27 HDL Cholesterol 49 Cholesterol/HDL Ratio 4.3 H Lipase 43 TSH 1.22 Thyroxine (T4) 9.5 HCG, Quant < 2 SARS-CoV-2 (PCR) Not detected Influenza A Untype (PCR) Not detected Influenza Type B (PCR) Not detected DS: Diagnosis Discharge Diagnosis (1) SIRS (systemic inflammatory response syndrome): Status: Acute Code(s): R65.10 - Systemic inflammatory response syndrome (SIRS) of non-infectious origin without acute organ dysfunction (2) Nausea vomiting and diarrhea: Status: Acute Code(s): R11.2 - Nausea with vomiting, unspecified; R19.7 - Diarrhea, unspecified (3) Gastroenteritis: Status: Acute Code(s): K52.9 - Noninfective gastroenteritis and colitis, unspecified (4) Dehydration: Status: Acute Code(s): E86.0 - Dehydration (5) Tachycardia: Status: Acute Code(s): R00.0 - Tachycardia, unspecified Meds Home Medications and Allergies Home Medications Medication Instructions Recorded Confirmed Type ondansetron HCl 4 mg tablet 4 mg PO Q8H PRN nausea and 11/11/23 Rx vomiting 5 days #15 tabs New Prescriptions to Start Prescriptions: ondansetron HCl Benjamin Laurent Allergies Allergy/AdvReac Type Severity Reaction Status Date / Time banana Allergy Verified 11/10/23 11:05 Discharge Plan Disposition Patient Disposition: Home, Self-Care Condition: Good Follow up Plan Follow up with: Karla Watson PA [Physician [facility]] - 11/18/23 1:00 pm Prescriptions/Medication Reconciliation: New ondansetron HCl 4 mg tablet 4 mg PO Q8H PRN (Reason: nausea and vomiting) 5 Days Qty: 15 0RF Problem Reconciliation Problems Reviewed?: Yes Patient Discharge Instructions ACTIVITY: Continue current activity DIET: continue same diet Stand Alone Forms: [facility] Work Release Patient Instructions: DI for Dehydration -- Adult, DI for Nausea -- Adult, DI for Vomiting -- Adult Providers Primary Care Provider: Provider,Referral Admit Provider: Benjamin Laurent Attending Provider: Benjamin Laurent
[2023-11-11 07:41] VITALS: BP 103/59; PULSE 81; RESP 18; TEMP 36.5; O2SAT 97
[2023-11-11 08:00] VITALS: PULSE 90
[2023-11-11 08:21] LABS: Hemoglobin 10.6 g/dL (12.2-16.2)
[2023-11-11] MEDS: POTASSIUM CHLORIDE 20MEQ TAB 20 MEQ PO (08:39)
[2023-11-11] MEDS: MAGNESIUM SULFATE IN WATER 2 GM/50 ML PIGGYBACK IV (08:39)
--- NOTE | 2023-11-11 08:44 | HMH.PHAINT1 ---
Pharmacy Intervention Comments: Spoke with patient at bedside, confirmed she does not take any medications at home.
--- NOTE | 2023-11-12 12:48 | CARE MANAGER ---
Called and spoke with patient regarding recent discharge. Patient states that she is doing well, no concerns voiced at time of call.
== END 2023-11-11 11:57 | disposition home or self-care (01) ==
LOC: ER 16:07 → 2ND 16:22
PROVIDERS: Admitting Provider Internal Medicine Adolescent Medicine; Emergency Provider Emergency Medicine; Visit Provider Internal Medicine Adolescent Medicine
DX: E86.0 Dehydration (principal); F17.210 Nicotine dependence, cigarettes, uncomplicated; I10 Essential (primary) hypertension; K52.9 Noninfective gastroenteritis and colitis, unspecified
CPT/HCPCS: 36415; 71045; 71275; 74174; 80053; 80061; 83036; 83605; 83690; 83735; 83880; 84436; 84443; 84484; 84702; 85007; 85025; 85378; 87040; 87636; 93005; 99291; G0378; J0131; J2405; J3475; Q9967